=== PATIENT | male | born 1955 | race Caucasian/White ===

== ENCOUNTER → 2016-09-09 | Outpatient (REF) | payer MEDICARE | LOC: M LAB REF 13:10 | PROVIDERS: ATTEND Surgery | DX: C44.319 Basal cell carcinoma of skin of other parts of face (principal) ==

== ENCOUNTER → 2016-10-20 | Outpatient (REF) | payer MEDICARE ==
[2016-10-20 12:10] LABS: CALCIUM LEVEL 9.4 MG/DL (8.8-10.2); CREATININE FOR GFR 1.58 MG/DL (0.70-1.30); FREE T4 1.09 NG/DL (0.76-1.46); GLOMERULAR FILTRATION RATE 47.4 (>49); POTASSIUM SERUM 4.5 MEQ/L (3.5-5.1)
== END ==
LOC: M SFHCLERA 09:11
PROVIDERS: ATTEND Family Medicine
DX: E11.9 Type 2 diabetes mellitus without complications (principal); N18.3 Chronic kidney disease, stage 3 (moderate)

== ENCOUNTER → 2017-04-22 | Outpatient (REF) | payer MEDICARE ==
[2017-04-22 11:23] LABS: MEAN CORPUSCULAR HEMOGLOBIN 27.1 pg (27.0-33.0); MEAN CORPUSCULAR HGB CONC 32.1 g/dl (32.0-36.5); MEAN CORPUSCULAR VOLUME 84.5 fl (80.0-96.0); RED CELL DISTRIBUTION WIDTH 12.4 % (11.5-14.5)
[2017-04-22 12:03] LABS: ALBUMIN 4.2 GM/DL (3.2-5.2); ALBUMIN/GLOBULIN RATIO 1.27 (1.00-1.93); BILIRUBIN,TOTAL 0.4 MG/DL (0.2-1.0); CALCIUM LEVEL 9.3 MG/DL (8.8-10.2); CREATININE FOR GFR 1.61 MG/DL (0.70-1.30); FREE T4 0.99 NG/DL (0.76-1.46); GLOMERULAR FILTRATION RATE 46.4 (>49); POTASSIUM SERUM 4.5 MEQ/L (3.5-5.1); TOTAL PROTEIN 7.5 GM/DL (6.4-8.2)
[2017-04-23 14:16] LABS: PSA TOTAL 3.4 ng/mL (0.0-4.0)
== END ==
LOC: M SFHCLERA 09:44
PROVIDERS: ATTEND Family Medicine
DX: E11.9 Type 2 diabetes mellitus without complications (principal); F41.9 Anxiety disorder, unspecified
CPT/HCPCS: 80053; 82043; 83036; 84154; 84439; 84443; 85027; G0463

== ENCOUNTER → 2017-07-15 | Outpatient (REF) | payer MEDICARE ==
[2017-07-15 11:58] LABS: ALBUMIN 4.2 GM/DL (3.2-5.2); ALBUMIN/GLOBULIN RATIO 1.2 (1.00-1.93); BILIRUBIN,TOTAL 0.6 MG/DL (0.2-1.0); CALCIUM LEVEL 8.9 MG/DL (8.8-10.2); CREATININE FOR GFR 1.62 MG/DL (0.70-1.30); POTASSIUM SERUM 4.5 MEQ/L (3.5-5.1); TOTAL PROTEIN 7.7 GM/DL (6.4-8.2)
== END ==
LOC: M SFHCLERA 09:38
PROVIDERS: ATTEND Physician Assistant
DX: E11.65 Type 2 diabetes mellitus with hyperglycemia (principal); N18.3 Chronic kidney disease, stage 3 (moderate)

== ENCOUNTER → 2017-10-23 | Outpatient (CLI) | payer MEDICARE ==
[~2017-10-23] MED LIST: E-Z-GAS II EFFERVESCENT PACKET (SODIUM BICARB./CITRIC ACID/SIMETHICONE) As Ordered; E-Z-HD 98% w/w 340GM SUSP BTL As Ordered; E-Z-PAQUE 96% w/w SUSP 176GM BTL As Ordered
== END ==
LOC: M RAD 08:28
DX: R13.10 Dysphagia, unspecified (principal)
CPT/HCPCS: 74220

== ENCOUNTER 2017-12-10 10:29 | Day surgery (SDC) | payer MEDICARE ==
[2017-12-10] MEDS: NS 1,000 ML IV (10:45)
[2017-12-10] MEDS ORDERED: fentaNYL 100 MCG/2 ML INJECTION (J3010) As Ordered (12:29)
[2017-12-10] MEDS ORDERED: PROPOFOL 500 MG/50 ML VIAL As Ordered (12:31)
[2017-12-10] MEDS ORDERED: LIDOCAINE 2% INJ 100 MG/5 ML SDV (FOR ANES.) As Ordered (12:34)
[2017-12-10] MEDS ORDERED: SIMETHICONE 40MG/0.6ML DROPS 30ML As Ordered (13:34)
[2017-12-13 10:26] LABS: BEDSIDE GLUCOSE 93 MG/DL (80-115)
== END 2017-12-10 14:32 | disposition home or self-care (01) ==
LOC: M OPP 10:29
DX: Z12.11 Encounter for screening for malignant neoplasm of colon (principal); Z86.010 Personal history of colon polyps; D12.0 Benign neoplasm of cecum; D12.5 Benign neoplasm of sigmoid colon; K57.30 Diverticulosis of large intestine without perforation or abscess without bleeding; K64.8 Other hemorrhoids; R93.3 Abnormal findings on diagnostic imaging of other parts of digestive tract; I12.9 Hypertensive chronic kidney disease with stage 1 through stage 4 chronic kidney disease, or unspecified chronic kidney disease; E78.5 Hyperlipidemia, unspecified; E11.9 Type 2 diabetes mellitus without complications; E04.1 Nontoxic single thyroid nodule; Z85.828 Personal history of other malignant neoplasm of skin; R21 Rash and other nonspecific skin eruption; F41.9 Anxiety disorder, unspecified; F32.9 Major depressive disorder, single episode, unspecified; N18.9 Chronic kidney disease, unspecified; N40.1 Benign prostatic hyperplasia with lower urinary tract symptoms; Z91.018 Allergy to other foods; Z88.8 Allergy status to other drugs, medicaments and biological substances; Z88.0 Allergy status to penicillin; Z79.82 Long term (current) use of aspirin; Z79.899 Other long term (current) drug therapy; Z79.84 Long term (current) use of oral hypoglycemic drugs
CPT/HCPCS: 45385

== ENCOUNTER → 2018-01-13 | Outpatient (REF) | payer MEDICARE ==
[2018-01-13 16:47] LABS: ESTIMATED AVERAGE GLUCOSE 192 MG/DL (60-110); HEMOGLOBIN A1c 8.3 %
[2018-01-13 16:50] LABS: ALBUMIN/GLOBULIN RATIO 1.11 (1.00-1.93); ALKALINE PHOSPHATASE 69 U/L (45-117); ALT/SGPT 35 U/L (12-78); ANION GAP 4 MEQ/L (8-16); AST/SGOT 36 U/L (7-37); BILIRUBIN,TOTAL 0.4 MG/DL (0.2-1.0); BLOOD UREA NITROGEN 19 MG/DL (7-18); CALCIUM LEVEL 8.7 MG/DL (8.8-10.2); CARBON DIOXIDE LEVEL 30 MEQ/L (21-32); CHLORIDE LEVEL 107 MEQ/L (98-107); CHOLESTEROL LEVEL 109 MG/DL (<200); CHOLESTEROL RISK RATIO 3.114 (<5); GLOMERULAR FILTRATION RATE 46.6 (>49); GLUCOSE, FASTING 132 MG/DL (70-100); HDL CHOLESTEROL 35 MG/DL (>40); NON-HDL-C 74 MG/DL; POTASSIUM SERUM 4.8 MEQ/L (3.5-5.1); SODIUM LEVEL 141 MEQ/L (136-145); THYROID STIMULATING HORMONE 0.529 uIU/ML (0.358-3.740); TOTAL PROTEIN 7.6 GM/DL (6.4-8.2); TRIGLYCERIDES LEVEL 135 MG/DL (<150)
== END ==
LOC: M SFHCLERA 09:47
DX: E11.65 Type 2 diabetes mellitus with hyperglycemia (principal); E78.2 Mixed hyperlipidemia; E03.9 Hypothyroidism, unspecified
CPT/HCPCS: 84443

== ENCOUNTER 2018-03-30 12:27 | Emergency (ER) | payer MEDICARE ==
[2018-03-30 14:49] LABS: BASO % 0.3 % (0.0-1.0); EOS # 0.1 10^3/uL (0.0-0.50); EOS % 1.6 % (0.0-3.0); HEMATOCRIT 43.1 % (42.0-52.0); HEMOGLOBIN 13.5 g/dl (13.5-17.5); IMMATURE GRANULOCYTE % 0.5 % (0-3.0); LYMPH # 1.2 10^3/uL (1.5-4.5); LYMPH % 14.9 % (24.0-44.0); MEAN CORPUSCULAR HEMOGLOBIN 26.8 pg (27.0-33.0); MEAN CORPUSCULAR HGB CONC 31.3 g/dl (32.0-36.5); MEAN CORPUSCULAR VOLUME 85.5 fl (80.0-96.0); MONO % 12.8 % (0.0-5.0); NEUTROPHILS # 5.5 10^3/uL (1.8-7.7); NEUTROPHILS % 69.9 % (36.0-66.0); PLATELET COUNT, AUTOMATED 210 10^3/uL (150-450); RED BLOOD COUNT 5.04 10^6/uL (4.30-6.10); RED CELL DISTRIBUTION WIDTH 14.2 % (11.5-14.5); WHITE BLOOD COUNT 7.9 10^3/uL (4.0-10.0)
[2018-03-30 15:03] LABS: ALBUMIN/GLOBULIN RATIO 1.03 (1.00-1.93); ALKALINE PHOSPHATASE 311 U/L (45-117); ANION GAP 9 MEQ/L (8-16); AST/SGOT 179 U/L (7-37); BILIRUBIN,DIRECT 0.8 MG/DL (0.0-0.2); BILIRUBIN,TOTAL 1.1 MG/DL (0.2-1.0); BLOOD UREA NITROGEN 17 MG/DL (7-18); CALCIUM LEVEL 9.6 MG/DL (8.8-10.2); CARBON DIOXIDE LEVEL 27 MEQ/L (21-32); CHLORIDE LEVEL 104 MEQ/L (98-107); CPK CREATINE PHOSPHOKINASE 135 U/L (39-308); CREATININE FOR GFR 1.51 MG/DL (0.70-1.30); GLOMERULAR FILTRATION RATE 49.8 (>49); GLUCOSE, FASTING 84 MG/DL (70-100); LIPASE 883 U/L (73-393); POTASSIUM SERUM 4.3 MEQ/L (3.5-5.1); SODIUM LEVEL 140 MEQ/L (136-145); TOTAL PROTEIN 7.9 GM/DL (6.4-8.2); TROPONIN I < 0.02 NG/ML (< 0.10)
[2018-03-30 15:06] LABS: ALT/SGPT 264 U/L (12-78); CK-MB VALUE MASS 2.2 NG/ML (<3.6); MB/CK RELATIVE INDEX 1.62 (< OR =4)
[2018-03-30] MEDS: GASTROGRAFIN SOLUTION 30ML PO ×2 (16:16→16:43)
[2018-03-30] MEDS ORDERED: ISOVUE-370 76% 100ML VIAL (Q9967) As Ordered (17:39)
[2018-03-30] MEDS: NS 1,000 ML IV (18:14)
[2018-03-30] MEDS ORDERED: BISACODYL 5 MG TAB PO (18:15)
[2018-03-30] MEDS ORDERED: ACETAMINOPHEN TAB 650MG DOSE (2X325MG) PO (18:15)
[2018-03-30] MEDS ORDERED: MORPHINE 4 MG/ML 1ML VIAL/SYRINGE (J2270) IV (18:15)
[2018-03-30] MEDS ORDERED: ONDANSETRON 4 MG TAB (S0181) PO (18:15)
[2018-03-30] MEDS ORDERED: ALPRAZolam 0.25 MG TAB PO (18:30)
[2018-03-30] MEDS ORDERED: KETOCONAZOLE 2% CREAM TOP (18:30)
[2018-03-30] MEDS ORDERED: CETIRIZINE (ZyrTEC) 10 MG TAB PO (21:00)
[2018-03-30] MEDS ORDERED: ASPIRIN 81 MG ENTERIC TAB PO (21:00)
[2018-03-30] MEDS ORDERED: PRAVASTATIN 20 MG TAB PO (21:00)
[2018-03-30] MEDS ORDERED: TAMSULOSIN 0.4 MG CAP PO (21:00)
[2018-03-31] MEDS ORDERED: LEVOTHYROXINE 88MCG TABLET (0.088 MG) PO (06:00)
[2018-03-31] MEDS ORDERED: LISINOPRIL 5 MG TAB PO (09:00)
[2018-03-31] MEDS ORDERED: SITagliptin 50 MG TAB (JANUVIA) PO (09:00)
[2018-03-31] MEDS ORDERED: OMEPRAZOLE 20 MG CAP PO (09:00)
[2018-03-31 11:13] LABS: HEPATITIS B SURFACE ANTIGEN NEGATIVE (NEGATIVE)
[2018-03-31 11:40] LABS: HEPATITIS C VIRUS ABY INDEX 0.2 INDEX (<0.8)
[2018-03-31 11:40] LABS: HEPATITIS B CORE ANTIBODY IGM NEGATIVE (NEGATIVE)
[2018-03-31 11:43] LABS: HEPATITIS A ANTIBODY IGM NEGATIVE (NEGATIVE)
[2018-03-31] MEDS ORDERED: GLIMEPIRIDE 2 MG TAB PO (17:30)
== END 2018-03-30 20:38 | disposition short-term general hospital (02) ==
LOC: M ED 12:27 → M ED INP 16:44 → M ED 20:38
DX: K80.20 Calculus of gallbladder without cholecystitis without obstruction (principal); K85.10 Biliary acute pancreatitis without necrosis or infection; E11.9 Type 2 diabetes mellitus without complications; I12.9 Hypertensive chronic kidney disease with stage 1 through stage 4 chronic kidney disease, or unspecified chronic kidney disease; N18.9 Chronic kidney disease, unspecified; E78.5 Hyperlipidemia, unspecified; E03.9 Hypothyroidism, unspecified; F41.9 Anxiety disorder, unspecified; K21.9 Gastro-esophageal reflux disease without esophagitis; N28.1 Cyst of kidney, acquired; Z88.0 Allergy status to penicillin; Z88.8 Allergy status to other drugs, medicaments and biological substances; Z79.899 Other long term (current) drug therapy
CPT/HCPCS: Q9963

== ENCOUNTER → 2018-05-25 | Outpatient (REF) | payer MEDICARE ==
[2018-05-25 17:06] LABS: BASO % 0.5 % (0.0-1.0); EOS # 0.2 10^3/uL (0.0-0.50); EOS % 2.4 % (0.0-3.0); HEMATOCRIT 41.6 % (42.0-52.0); HEMOGLOBIN 13.2 g/dl (13.5-17.5); IMMATURE GRANULOCYTE % 0.2 % (0-3.0); LYMPH # 1.5 10^3/uL (1.5-4.5); LYMPH % 17.3 % (24.0-44.0); MEAN CORPUSCULAR HEMOGLOBIN 26.6 pg (27.0-33.0); MEAN CORPUSCULAR HGB CONC 31.7 g/dl (32.0-36.5); MEAN CORPUSCULAR VOLUME 83.9 fl (80.0-96.0); MONO % 12.4 % (0.0-5.0); NEUTROPHILS # 5.6 10^3/uL (1.8-7.7); NEUTROPHILS % 67.2 % (36.0-66.0); PLATELET COUNT, AUTOMATED 203 10^3/uL (150-450); RED BLOOD COUNT 4.96 10^6/uL (4.30-6.10); RED CELL DISTRIBUTION WIDTH 12.9 % (11.5-14.5); WHITE BLOOD COUNT 8.4 10^3/uL (4.0-10.0)
[2018-05-25 17:16] LABS: ESTIMATED AVERAGE GLUCOSE 151 MG/DL (60-110); HEMOGLOBIN A1c 6.9 %
[2018-05-25 17:20] LABS: CREATININE, URINE 97.3 MG/DL; MALB URINE SIEMENS 7.6 MG/L
[2018-05-25 17:21] LABS: MAU/CREAT RATIO 7.8 MCG/MG (0.0-30.0)
[2018-05-25 17:25] LABS: ALBUMIN/GLOBULIN RATIO 1.08 (1.00-1.93); ALKALINE PHOSPHATASE 77 U/L (45-117); ALT/SGPT 31 U/L (12-78); ANION GAP 9 MEQ/L (8-16); AST/SGOT 30 U/L (7-37); BILIRUBIN,TOTAL 0.7 MG/DL (0.2-1.0); BLOOD UREA NITROGEN 18 MG/DL (7-18); CALCIUM LEVEL 9.6 MG/DL (8.8-10.2); CARBON DIOXIDE LEVEL 29 MEQ/L (21-32); CHLORIDE LEVEL 101 MEQ/L (98-107); CHOLESTEROL LEVEL 119 MG/DL (<200); CHOLESTEROL RISK RATIO 2.833 (<5); CREATININE FOR GFR 1.59 MG/DL (0.70-1.30); GLOMERULAR FILTRATION RATE 46.9 (>49); GLUCOSE, FASTING 109 MG/DL (70-100); HDL CHOLESTEROL 42 MG/DL (>40); LDL CHOLESTEROL 50 MG/DL (<100); NON-HDL-C 77 MG/DL; POTASSIUM SERUM 4.8 MEQ/L (3.5-5.1); SODIUM LEVEL 139 MEQ/L (136-145); TOTAL PROTEIN 7.7 GM/DL (6.4-8.2); TRIGLYCERIDES LEVEL 136 MG/DL (<150)
[2018-05-28 00:09] LABS: PSA % FREE 48.5 % (.); PSA FREE 4.85 ng/mL
== END ==
LOC: M SFHCLERA 10:49
DX: E11.9 Type 2 diabetes mellitus without complications (principal); R97.20 Elevated prostate specific antigen [PSA]
CPT/HCPCS: 84443

== ENCOUNTER → 2018-06-03 | Outpatient (REF) | payer MEDICARE | LOC: M SMT 13:12 | DX: R97.20 Elevated prostate specific antigen [PSA] (principal); Z79.899 Other long term (current) drug therapy | CPT/HCPCS: 87086 ==

== ENCOUNTER → 2018-06-29 | Outpatient (CLI) | payer MEDICARE ==
[~2018-06-29] MED LIST changes: +ALPR0.25 PO; +ASPI1TAB PO; +CETI10TA PO; -E-Z-GAS II EFFERVESCENT PACKET (SODIUM BICARB./CITRIC ACID/SIMETHICONE) As Ordered; -E-Z-HD 98% w/w 340GM SUSP BTL As Ordered; -E-Z-PAQUE 96% w/w SUSP 176GM BTL As Ordered; +FLOM0.4C39 PO; +FLON1SPR; +GLIM2TA PO; +GLIM4TAB; +KETO2CR TOP; +LEVO88TA3 PO; +LISI-542 PO; +METF500T13 PO; +OMEP40CA2 PO; +PRAV40TA2 PO; +SITA50TAB PO
--- NOTE | 2018-06-29 14:27 | REP ---
Prostate sonography: History: Elevated PSA Sonographic findings: Trans rectal prostate sonography demonstrates unremarkable seminal vesicles. Prostate gland is heterogeneously enlarged with calcifications and cystic changes noted. Glandular dimensions are measured at 5.6 x 4.3 x 5.6 cm with a calculated glandular volume of 68.5 ml. There are multiple right and left nodules. The largest on the right is 1.0 and that on the left 1.6 cm. Transrectal sonographic guidance provided to Dr. Hagen who performed trans rectal ultrasound guided needle biopsy procedure . Electronically Signed by Ten Jimenez MD 06/29/2018 02:18 P
== END ==
LOC: M SMT PRO 09:07
PROVIDERS: ATTEND Nurse Practitioner Family
DX: R97.20 Elevated prostate specific antigen [PSA] (principal)
CPT/HCPCS: 55700; 76872; 76942; G0416

== ENCOUNTER → 2018-07-29 | Outpatient (REF) | payer MEDICARE | LOC: M SFHCLERA 10:45 | PROVIDERS: ATTEND Family Medicine | DX: E03.9 Hypothyroidism, unspecified (principal) ==

== ENCOUNTER → 2018-09-09 | Outpatient (CLI) | payer MEDICARE ==
--- NOTE | 2018-09-09 18:09 | REP ---
Right ribs four views: There is no rib fracture or other rib abnormality. PA chest: Comparison is 05/22/2012. There is no pneumothorax, hemothorax or pulmonary contusion. The lung stoner are clear. Cardiac size is normal. The [place], mediastinum, skeletal structures are unremarkable. There is no interval change. Impression: Negative PA chest. Electronically Signed by Myles Alexander MD 09/09/2018 06:01 P
== END ==
LOC: M LRY 17:37
PROVIDERS: ATTEND Physician Assistant
DX: R07.81 Pleurodynia (principal)
CPT/HCPCS: 71101; G0463

== ENCOUNTER → 2018-10-25 | Outpatient (REF) | payer MEDICARE ==
[2018-10-25 17:19] LABS: CALCIUM LEVEL 8.8 MG/DL (8.8-10.2); CREATININE FOR GFR 1.54 MG/DL (0.70-1.30); GLOMERULAR FILTRATION RATE 48.5 (>49); POTASSIUM SERUM 4.8 MEQ/L (3.5-5.1); THYROID STIMULATING HORMONE 4.41 uIU/ML (0.358-3.740)
[2018-10-25 17:45] LABS: HEMOGLOBIN A1c 7.9 %
== END ==
LOC: M SFHCLERA 11:22
PROVIDERS: ATTEND Family Medicine
DX: E11.9 Type 2 diabetes mellitus without complications (principal); N18.9 Chronic kidney disease, unspecified; E03.9 Hypothyroidism, unspecified

== ENCOUNTER → 2018-12-13 | Outpatient (REF) | payer MEDICARE ==
[~2018-12-13] MED LIST changes: -ASPI1TAB PO; +ASPI81TA26 PO; -GLIM2TA PO; +GLIM2TAB29 PO
== END ==
LOC: M SFHCLERA 10:37
PROVIDERS: ATTEND Family Medicine
DX: E03.9 Hypothyroidism, unspecified (principal)

== ENCOUNTER → 2019-01-04 | Outpatient (REF) | payer MEDICARE | LOC: M SFHCLERA 10:16 | PROVIDERS: ATTEND Urology | DX: R97.20 Elevated prostate specific antigen [PSA] (principal) ==

== ENCOUNTER → 2019-01-07 | Outpatient (REF) | payer MEDICARE ==
[2019-01-07 11:40] LABS: BASO # 0.1 10^3/uL (0.0-0.2); BASO % 0.8 % (0.0-1.0); EOS # 0.2 10^3/uL (0.0-0.50); EOS % 2.9 % (0.0-3.0); HEMATOCRIT 45.8 % (42.0-52.0); HEMOGLOBIN 14.5 g/dl (13.5-17.5); LYMPH # 1.1 10^3/uL (1.5-4.5); MEAN CORPUSCULAR HEMOGLOBIN 27.7 pg (27.0-33.0); MEAN CORPUSCULAR HGB CONC 31.7 g/dl (32.0-36.5); MEAN CORPUSCULAR VOLUME 87.4 fl (80.0-96.0); MONO % 12.9 % (0.0-5.0); NEUTROPHILS # 5.5 10^3/uL (1.8-7.7); PLATELET COUNT, AUTOMATED 199 10^3/uL (150-450); RED BLOOD COUNT 5.24 10^6/uL (4.30-6.10); WHITE BLOOD COUNT 7.9 10^3/uL (4.0-10.0)
[2019-01-09 00:08] LABS: Lyme Disease IgG/IgM Antibodie <0.91 ISR (0.00-0.90); Lyme Disease IgM Ab Quantitati <0.80 index (0.00-0.79)
== END ==
LOC: M SFHCLERA 09:56
PROVIDERS: ATTEND Physician Assistant
DX: L03.312 Cellulitis of back [any part except buttock and flank] (principal)
CPT/HCPCS: 85025; 86617; G0463

== ENCOUNTER → 2019-01-25 | Outpatient (REF) | payer MEDICARE ==
[~2019-01-25] MED LIST changes: -GLIM4TAB; +GLIM4TAB5; -OMEP40CA2 PO; +OMEP40CA97 PO
[2019-01-25 13:21] LABS: HEMOGLOBIN A1c 7.8 %
== END ==
LOC: M SFHCLERA 09:59
PROVIDERS: ATTEND Family Medicine
DX: E11.9 Type 2 diabetes mellitus without complications (principal); E03.9 Hypothyroidism, unspecified

== ENCOUNTER → 2019-01-31 | Outpatient (REF) | payer MEDICARE ==
[~2019-01-31] MED LIST changes: +GLIM4TAB; -GLIM4TAB5; +OMEP40CA2 PO; -OMEP40CA97 PO
[2019-02-03 00:06] LABS: Lyme Disease IgG/IgM Antibodie <0.91 ISR (0.00-0.90); Lyme Disease IgM Ab Quantitati <0.80 index (0.00-0.79)
== END ==
LOC: M SFHCLERA 12:21
PROVIDERS: ATTEND Family Medicine
DX: R21 Rash and other nonspecific skin eruption (principal); Z23 Encounter for immunization
CPT/HCPCS: 86617; 90670; G0009; G0463

== ENCOUNTER → 2019-04-29 | Outpatient (REF) | payer MEDICARE ==
[2019-04-29 13:01] LABS: CALCIUM LEVEL 9.4 MG/DL (8.8-10.2); CREATININE FOR GFR 1.49 MG/DL (0.70-1.30); GLOMERULAR FILTRATION RATE 50.4 (>49); POTASSIUM SERUM 4.5 MEQ/L (3.5-5.1); THYROID STIMULATING HORMONE 11.4 uIU/ML (0.358-3.740)
[2019-04-29 13:47] LABS: HEMOGLOBIN A1c 6.9 %
== END ==
LOC: M SFHCLERA 08:55
PROVIDERS: ATTEND Family Medicine
DX: E11.9 Type 2 diabetes mellitus without complications (principal); N18.9 Chronic kidney disease, unspecified; E03.9 Hypothyroidism, unspecified

== ENCOUNTER → 2019-06-28 | Outpatient (REF) | payer MEDICARE ==
[~2019-06-28] MED LIST changes: -GLIM4TAB; +GLIM4TAB3; -OMEP40CA2 PO; +OMEP40CA97 PO
[2019-06-28 17:28] LABS: PROSTATIC SPECIFIC AG MONITOR 1.82 NG/ML (< 4.00); THYROID STIMULATING HORMONE 2.02 uIU/ML (0.358-3.740)
[2019-06-28 17:49] LABS: MALB URINE SIEMENS 5.1 MG/L; MAU/CREAT RATIO 4.4 MCG/MG (0.0-30.0)
== END ==
LOC: M SFHCSACK 10:55
PROVIDERS: ATTEND Family Medicine
DX: E03.9 Hypothyroidism, unspecified (principal); E11.9 Type 2 diabetes mellitus without complications; R97.20 Elevated prostate specific antigen [PSA]

== ENCOUNTER → 2020-01-06 | Outpatient (REF) | payer MEDICARE ==
[~2020-01-06] MED LIST changes: -GLIM4TAB3; +GLIM4TAB5
[2020-01-06 12:06] LABS: CALCIUM LEVEL 9.2 MG/DL (8.8-10.2); CREATININE FOR GFR 1.47 MG/DL (0.70-1.30); POTASSIUM SERUM 4.6 MEQ/L (3.5-5.1); THYROID STIMULATING HORMONE 0.728 uIU/ML (0.358-3.740)
[2020-01-06 12:14] LABS: MALB URINE SIEMENS 9.2 MG/L; MAU/CREAT RATIO 4.2 MCG/MG (0.0-30.0)
[2020-01-06 13:02] LABS: HEMOGLOBIN A1c 7.6 %
== END ==
LOC: M PLALAB 10:00
PROVIDERS: ATTEND Family Medicine
DX: E11.9 Type 2 diabetes mellitus without complications (principal); R97.20 Elevated prostate specific antigen [PSA]; E03.9 Hypothyroidism, unspecified; Z12.5 Encounter for screening for malignant neoplasm of prostate
CPT/HCPCS: 36415; 80048; 82043; 83036; 84443; G0103

== ENCOUNTER → 2020-02-09 | Outpatient (REF) | payer MEDICARE ==
[2020-02-09 13:03] LABS: BASO % 0.2 % (0.0-1.0); EOS % 0.3 % (0.0-3.0); HEMATOCRIT 41.8 % (42.0-52.0); HEMOGLOBIN 13.3 g/dl (13.5-17.5); LYMPH # 0.8 10^3/uL (1.5-5.0); MEAN CORPUSCULAR HEMOGLOBIN 28.7 pg (27.0-33.0); MEAN CORPUSCULAR HGB CONC 31.8 g/dl (32.0-36.5); MEAN CORPUSCULAR VOLUME 90.3 fl (80.0-96.0); MONO # 1.1 10^3/uL (0.0-0.8); MONO % 18.1 % (0.0-5.0); NEUTROPHILS # 3.9 10^3/uL (1.5-8.5); NEUTROPHILS % 67.1 % (36.0-66.0); PLATELET COUNT, AUTOMATED 157 10^3/uL (150-450); RED BLOOD COUNT 4.63 10^6/uL (4.30-6.10); WHITE BLOOD COUNT 5.9 10^3/uL (4.0-10.0)
[2020-02-09 13:15] LABS: INR 1.21
[2020-02-09 13:16] LABS: PARTIAL THROMBOPLASTIN TIME 29.1 SECONDS (25.0-38.4)
[2020-02-11 19:08] LABS: Lyme Disease IgG/IgM Antibodie <0.91 ISR (0.00-0.90); Lyme Disease IgM Ab Quantitati <0.80 index (0.00-0.79)
== END ==
LOC: M SFHCLERA 11:24
PROVIDERS: ATTEND Physician Assistant
DX: L98.9 Disorder of the skin and subcutaneous tissue, unspecified (principal)
CPT/HCPCS: 85025; 85610; 85730; 86617; G0463

== ENCOUNTER → 2020-04-06 | Outpatient (CLI) | payer MEDICARE ==
[2020-04-06 14:36] LABS: CALCIUM LEVEL 9.8 MG/DL (8.8-10.2); CREATININE FOR GFR 1.58 MG/DL (0.70-1.30); GLOMERULAR FILTRATION RATE 46.9 (>49); POTASSIUM SERUM 4.9 MEQ/L (3.5-5.1)
== END ==
LOC: M PLALAB 10:50
PROVIDERS: ATTEND Family Medicine
DX: E11.9 Type 2 diabetes mellitus without complications (principal)

== ENCOUNTER → 2020-07-03 | Outpatient (CLI) | payer MEDICARE | LOC: M PLALAB 10:21 | PROVIDERS: ATTEND Nurse Practitioner Family | DX: R97.20 Elevated prostate specific antigen [PSA] (principal) ==

== ENCOUNTER → 2020-08-22 | Outpatient (REF) | payer MEDICARE ==
[~2020-08-22] MED LIST changes: -LISI-542 PO; +LISI-898 PO
[2020-08-22 15:03] LABS: CALCIUM LEVEL 9.8 MG/DL (8.8-10.2); CHOLESTEROL RISK RATIO 2.875 (<5); CREATININE FOR GFR 1.6 MG/DL (0.70-1.30); GLOMERULAR FILTRATION RATE 46.3 (>49); POTASSIUM SERUM 4.7 MEQ/L (3.5-5.1); THYROID STIMULATING HORMONE 3.72 uIU/ML (0.358-3.740)
[2020-08-22 15:37] LABS: HEMOGLOBIN A1c 7.6 %
== END ==
LOC: M PLALAB 11:44
PROVIDERS: ATTEND Family Medicine
DX: E11.9 Type 2 diabetes mellitus without complications (principal); E78.2 Mixed hyperlipidemia; E03.9 Hypothyroidism, unspecified

== ENCOUNTER → 2020-12-25 | Outpatient (REF) | payer MEDICARE ==
[2020-12-25 14:39] LABS: CALCIUM LEVEL 9.5 MG/DL (8.8-10.2); CREATININE FOR GFR 1.32 MG/DL (0.70-1.30); GLOMERULAR FILTRATION RATE 57.6 (>49); POTASSIUM SERUM 4.5 MEQ/L (3.5-5.1); THYROID STIMULATING HORMONE 0.378 uIU/ML (0.358-3.740)
[2020-12-25 14:40] LABS: MAU/CREAT RATIO 4.4 MCG/MG (0.0-30.0)
[2020-12-25 15:05] LABS: HEMOGLOBIN A1c 7.1 %
== END ==
LOC: M PLALAB 11:29
PROVIDERS: ATTEND Family Medicine
DX: E11.9 Type 2 diabetes mellitus without complications (principal); I10 Essential (primary) hypertension; E03.9 Hypothyroidism, unspecified

== ENCOUNTER → 2021-03-27 | Outpatient (CLI) | payer MEDICARE ==
[~2021-03-27] MED LIST changes: +OMEP40CA4 PO; -OMEP40CA97 PO
[2021-03-27 12:44] LABS: CALCIUM LEVEL 9.8 MG/DL (8.8-10.2); CREATININE FOR GFR 1.55 MG/DL (0.70-1.30); GLOMERULAR FILTRATION RATE 47.8 (>49); POTASSIUM SERUM 4.9 MEQ/L (3.5-5.1); THYROID STIMULATING HORMONE 1.85 uIU/ML (0.358-3.740)
[2021-03-27 15:03] LABS: HEMOGLOBIN A1c 7.1 %
== END ==
LOC: M PLALAB 09:46
PROVIDERS: ATTEND Family Medicine
DX: E03.9 Hypothyroidism, unspecified (principal); E11.319 Type 2 diabetes mellitus with unspecified diabetic retinopathy without macular edema

== ENCOUNTER → 2021-07-09 | Outpatient (CLI) | payer MEDICARE | LOC: M PLALAB 10:41 | PROVIDERS: ATTEND Nurse Practitioner Women's Health | DX: Z12.5 Encounter for screening for malignant neoplasm of prostate (principal) | CPT/HCPCS: 36415; G0103 ==

== ENCOUNTER → 2021-10-22 | Outpatient (CLI) | payer MEDICARE ==
[~2021-10-22] MED LIST changes: -LISI-898 PO; +LISI5TAB11 PO
[2021-10-22 12:45] LABS: CALCIUM LEVEL 9.6 MG/DL (8.8-10.2); CREATININE FOR GFR 1.44 MG/DL (0.70-1.30); GLOMERULAR FILTRATION RATE 51.9 (>49); POTASSIUM SERUM 4.5 MEQ/L (3.5-5.1)
[2021-10-22 13:51] LABS: HEMOGLOBIN A1c 8.8 %
== END ==
LOC: M LAB 11:31
PROVIDERS: ATTEND Family Medicine
DX: E11.9 Type 2 diabetes mellitus without complications (principal)

== ENCOUNTER → 2022-01-15 | Outpatient (CLI) | payer MEDICARE | LOC: M PLALAB 10:13 | PROVIDERS: ATTEND Nurse Practitioner Women's Health | DX: Z87.898 Personal history of other specified conditions (principal); Z85.46 Personal history of malignant neoplasm of prostate ==

== ENCOUNTER → 2022-01-30 | Outpatient (CLI) | payer MEDICARE ==
[2022-01-30 13:58] LABS: CALCIUM LEVEL 9.6 MG/DL (8.8-10.2); CREATININE FOR GFR 1.64 MG/DL (0.70-1.30); GLOMERULAR FILTRATION RATE 44.7 (>49); POTASSIUM SERUM 4.8 MEQ/L (3.5-5.1); THYROID STIMULATING HORMONE 3.41 uIU/ML (0.358-3.740)
[2022-01-30 14:34] LABS: HEMOGLOBIN A1c 7.2 %
== END ==
LOC: M PLALAB 09:17
PROVIDERS: ATTEND Family Medicine
DX: E03.9 Hypothyroidism, unspecified (principal); E11.9 Type 2 diabetes mellitus without complications

== ENCOUNTER → 2022-06-03 | Outpatient (CLI) | payer MEDICARE ==
[2022-06-03 13:21] LABS: CALCIUM LEVEL 9.4 MG/DL (8.8-10.2); CREATININE FOR GFR 1.43 MG/DL (0.70-1.30); GLOMERULAR FILTRATION RATE 52.4 (>49); POTASSIUM SERUM 4.6 MEQ/L (3.5-5.1)
== END ==
LOC: M WUC 08:59
PROVIDERS: ATTEND Family Medicine
DX: E11.9 Type 2 diabetes mellitus without complications (principal)

== ENCOUNTER → 2022-07-22 | Outpatient (CLI) | payer MEDICARE | LOC: M WUC 10:17 | PROVIDERS: ATTEND Nurse Practitioner Women's Health | DX: Z87.898 Personal history of other specified conditions (principal); R97.20 Elevated prostate specific antigen [PSA] ==

== ENCOUNTER → 2022-08-28 | Outpatient (CLI) | payer MEDICARE | LOC: M WUC 08:38 | PROVIDERS: ATTEND Family Medicine | DX: E03.9 Hypothyroidism, unspecified (principal) ==

== ENCOUNTER → 2022-09-18 | Outpatient (CLI) | payer MEDICARE | LOC: M RAD 15:55 | PROVIDERS: ATTEND Family Medicine | DX: E03.9 Hypothyroidism, unspecified (principal) ==

== ENCOUNTER → 2022-09-25 | Outpatient (CLI) | payer MEDICARE ==
[2022-09-25 10:48] LABS: BLOOD UREA NITROGEN 15 MG/DL (9-23); CREATININE FOR GFR 1.24 MG/DL (0.70-1.30); GLOMERULAR FILTRATION RATE > 60.0 (>49)
== END ==
LOC: M WUC 08:09
PROVIDERS: ATTEND Physician Assistant Medical
DX: R10.84 Generalized abdominal pain (principal); R19.4 Change in bowel habit

== ENCOUNTER → 2022-09-25 | Outpatient (CLI) | payer MEDICARE ==
[~2022-09-25] MED LIST changes: +E-Z-GAS II EFFERVESCENT PACKET (SODIUM BICARB./CITRIC ACID/SIMETHICONE) As Ordered ONE; +E-Z-HD 98% w/w 340GM SUSP BTL As Ordered ONE; +E-Z-PAQUE 96% w/w SUSP 176GM BTL As Ordered ONE
== END ==
LOC: M RAD 08:35
PROVIDERS: ATTEND Physician Assistant Medical
DX: R13.10 Dysphagia, unspecified (principal); K21.9 Gastro-esophageal reflux disease without esophagitis; R10.84 Generalized abdominal pain; R19.4 Change in bowel habit

== ENCOUNTER → 2022-09-30 | Outpatient (CLI) | payer MEDICARE ==
[~2022-09-30] MED LIST changes: -E-Z-GAS II EFFERVESCENT PACKET (SODIUM BICARB./CITRIC ACID/SIMETHICONE) As Ordered ONE; -E-Z-HD 98% w/w 340GM SUSP BTL As Ordered ONE; -E-Z-PAQUE 96% w/w SUSP 176GM BTL As Ordered ONE; +GASTROGRAFIN SOLUTION 30ML As Ordered ONE; +ISOVUE-370 76% 100ML VIAL As Ordered ONE
== END ==
LOC: M RAD 08:59
PROVIDERS: ATTEND Physician Assistant Medical
DX: R10.84 Generalized abdominal pain (principal); R19.4 Change in bowel habit; R68.81 Early satiety
CPT/HCPCS: 74178; Q9963; Q9967

== ENCOUNTER → 2022-10-20 | Outpatient (CLI) | payer MEDICARE ==
[~2022-10-20] MED LIST changes: +FINA5TAB2 PO; -GASTROGRAFIN SOLUTION 30ML As Ordered ONE; -ISOVUE-370 76% 100ML VIAL As Ordered ONE; +LEVO112T2 PO; +LISI2.5T9 PO; +OMEG10002 PO
== END ==
LOC: M LABSMTC 10:50
PROVIDERS: ATTEND Anesthesiology
DX: Z20.828 Contact with and (suspected) exposure to other viral communicable diseases (principal)

== ENCOUNTER 2022-10-23 06:46 | Day surgery (SDC) | payer MEDICARE ==
[~2022-10-23] VITALS: Ht 185.4 cm; Wt 85.6 kg
[~2022-10-23 06:46] MED LIST changes: +NS 1,000 ML IV ONE
[2022-10-23] MEDS ORDERED: propofoL 200 MG/20 ML VIAL As Ordered ONE (08:56)
[2022-10-23] MEDS ORDERED: GLYCOPYRROLATE INJ 0.2 MG/ML 2 ML VIAL As Ordered ONE (08:56)
[2022-10-23] MEDS ORDERED: LIDOCAINE 2% MDV 20ML VIAL As Ordered ONE (08:56)
[2022-10-23] MEDS ORDERED: fentaNYL 100 MCG/2 ML INJECTION As Ordered ONE (08:56)
[2022-10-23 09:10] VITALS: BP 120/73
== END 2022-10-23 09:16 | disposition home or self-care (01) ==
LOC: M OPP 06:46
PROVIDERS: ATTEND Internal Medicine Gastroenterology
DX: K64.8 Other hemorrhoids (principal); K57.30 Diverticulosis of large intestine without perforation or abscess without bleeding; K31.7 Polyp of stomach and duodenum; I10 Essential (primary) hypertension; E78.5 Hyperlipidemia, unspecified; E11.9 Type 2 diabetes mellitus without complications; N40.0 Benign prostatic hyperplasia without lower urinary tract symptoms; Z79.02 Long term (current) use of antithrombotics/antiplatelets; Z79.82 Long term (current) use of aspirin; Z79.84 Long term (current) use of oral hypoglycemic drugs; Z79.890 Hormone replacement therapy; Z79.899 Other long term (current) drug therapy; Z88.0 Allergy status to penicillin; Z88.6 Allergy status to analgesic agent; Z91.018 Allergy to other foods
CPT/HCPCS: 43250; 43251; 45378; 88305; J3010

== ENCOUNTER → 2022-11-28 | Outpatient (CLI) | payer MEDICARE ==
[~2022-11-28] MED LIST changes: -NS 1,000 ML IV ONE
[2022-11-28 17:43] LABS: HEMOGLOBIN A1c 7.5 % (4.0-6.0)
[2022-11-28 17:56] LABS: CALCIUM LEVEL 9.1 MG/DL (8.3-10.6); CREATININE FOR GFR 1.34 MG/DL (0.70-1.30); GLOMERULAR FILTRATION RATE 56.3 (>49); POTASSIUM SERUM 5.1 MMOL/L (3.5-5.1)
[2022-11-28 18:00] LABS: THYROID STIMULATING HORMONE 0.749 uIU/ML (0.55-4.78)
[2022-11-28 18:09] LABS: CREATININE, URINE 235.2 MG/DL; MAU/CREAT RATIO 12.7 MCG/MG (0.0-30.0)
== END ==
LOC: M WUC 11:18
PROVIDERS: ATTEND Family Medicine
DX: E03.9 Hypothyroidism, unspecified (principal); E11.9 Type 2 diabetes mellitus without complications

== ENCOUNTER → 2023-01-28 | Outpatient (REF) | payer MEDICARE | LOC: M LAB REF 22:13 | PROVIDERS: ATTEND Nurse Practitioner Women's Health | DX: Z87.898 Personal history of other specified conditions (principal) ==

== ENCOUNTER → 2023-03-06 | Outpatient (CLI) | payer MEDICARE ==
[2023-03-06 12:55] LABS: CALCIUM LEVEL 9.7 MG/DL (8.3-10.6); CREATININE FOR GFR 1.43 MG/DL (0.70-1.30); GLOMERULAR FILTRATION RATE 52.2 (>49); POTASSIUM SERUM 4.6 MMOL/L (3.5-5.1)
[2023-03-06 12:57] LABS: THYROID STIMULATING HORMONE 0.036 uIU/ML (0.55-4.78)
== END ==
LOC: M WUC 09:42
PROVIDERS: ATTEND Family Medicine
DX: E03.9 Hypothyroidism, unspecified (principal); E11.9 Type 2 diabetes mellitus without complications

== ENCOUNTER → 2023-05-06 | Outpatient (REF) | payer MEDICARE | LOC: M LABWUC 16:43 | PROVIDERS: ATTEND Family Medicine | DX: E03.9 Hypothyroidism, unspecified (principal) ==

== ENCOUNTER → 2023-06-04 | Outpatient (REF) | payer MEDICARE ==
[2023-06-04 12:51] LABS: HEMOGLOBIN A1c 7.5 % (4.0-6.0)
[2023-06-04 12:54] LABS: ALBUMIN 3.9 G/DL (3.2-5.2); BILIRUBIN,TOTAL 0.5 MG/DL (0.3-1.2); CALCIUM LEVEL 9.7 MG/DL (8.3-10.6); CREATININE FOR GFR 1.41 MG/DL (0.70-1.30); GLOMERULAR FILTRATION RATE 53.1 (>49); POTASSIUM SERUM 5.1 MMOL/L (3.5-5.1); TOTAL PROTEIN 7.6 G/DL (5.7-8.2)
[2023-06-04 12:55] LABS: THYROID STIMULATING HORMONE 2.696 uIU/ML (0.55-4.78)
== END ==
LOC: M LABWUC 11:44
PROVIDERS: ATTEND Family Medicine
DX: E03.9 Hypothyroidism, unspecified (principal); E11.9 Type 2 diabetes mellitus without complications

== ENCOUNTER → 2023-08-03 | Outpatient (REF) | payer MEDICARE ==
[2023-08-03 16:51] LABS: ALBUMIN 4.2 G/DL (3.2-5.2); BILIRUBIN,TOTAL 0.4 MG/DL (0.3-1.2); CALCIUM LEVEL 9.5 MG/DL (8.3-10.6); CREATININE FOR GFR 1.38 MG/DL (0.70-1.30); GLOMERULAR FILTRATION RATE 54.4 (>49); MAGNESIUM LEVEL 1.4 MG/DL (1.8-2.4); POTASSIUM SERUM 4.9 MMOL/L (3.5-5.1); TOTAL PROTEIN 7.6 G/DL (5.7-8.2)
== END ==
LOC: M LABWUC 16:12
PROVIDERS: ATTEND Family Medicine
DX: M62.838 Other muscle spasm (principal)

== ENCOUNTER → 2023-08-28 | Outpatient (CLI) | payer MEDICARE ==
[2023-08-28 12:49] LABS: BILIRUBIN,TOTAL 0.4 MG/DL (0.3-1.2); CALCIUM LEVEL 9.9 MG/DL (8.3-10.6); CREATININE FOR GFR 1.27 MG/DL (0.70-1.30); GLOMERULAR FILTRATION RATE 59.9 (>49); MAGNESIUM LEVEL 1.4 MG/DL (1.8-2.4); POTASSIUM SERUM 4.8 MMOL/L (3.5-5.1); TOTAL PROTEIN 7.9 G/DL (5.7-8.2)
[2023-08-28 12:51] LABS: TOTAL 25(OH) VITAMIN D 21.8 NG/ML (20.0-100.0)
== END ==
LOC: M RAD 10:55
PROVIDERS: ATTEND Family Medicine
DX: M47.816 Spondylosis without myelopathy or radiculopathy, lumbar region (principal); M79.604 Pain in right leg; Z79.899 Other long term (current) drug therapy

== ENCOUNTER → 2023-09-25 | Outpatient (CLI) | payer MEDICARE | LOC: M RAD 14:43 | PROVIDERS: ATTEND Family Medicine | DX: M79.604 Pain in right leg (principal); M47.816 Spondylosis without myelopathy or radiculopathy, lumbar region ==

== ENCOUNTER → 2023-10-06 | Outpatient (CLI) | payer MEDICARE ==
[2023-10-06 16:35] LABS: ALBUMIN 4.1 G/DL (3.2-5.2); BILIRUBIN,TOTAL 0.5 MG/DL (0.3-1.2); CALCIUM LEVEL 9.3 MG/DL (8.3-10.6); CREATININE FOR GFR 1.33 MG/DL (0.70-1.30); GLOMERULAR FILTRATION RATE 56.6 (>42); MAGNESIUM LEVEL 1.3 MG/DL (1.8-2.4); POTASSIUM SERUM 4.5 MMOL/L (3.5-5.1); TOTAL PROTEIN 7.7 G/DL (5.7-8.2)
[2023-10-06 16:37] LABS: THYROID STIMULATING HORMONE 2.823 uIU/ML (0.55-4.78)
[2023-10-06 17:06] LABS: CREATININE, URINE 263.9 MG/DL; MAU/CREAT RATIO 6.8 MCG/MG (0.0-30.0)
[2023-10-06 17:24] LABS: HEMOGLOBIN A1c 8.9 % (4.0-6.0)
== END ==
LOC: M WUC 11:07
PROVIDERS: ATTEND Family Medicine
DX: E11.9 Type 2 diabetes mellitus without complications (principal); E03.9 Hypothyroidism, unspecified; E83.42 Hypomagnesemia; R25.2 Cramp and spasm

== ENCOUNTER → 2023-11-20 | Outpatient (CLI) | payer MEDICARE ==
[2023-11-20 17:17] LABS: IRON (FE) 32 UG/DL (65-175); PERCENT SATURATION 7.3 % (19.7-50.0); TOTAL IRON BINDING CAPACITY 439 UG/DL (250-425)
[2023-11-20 17:18] LABS: ALBUMIN 4.1 G/DL (3.2-5.2); ALKALINE PHOSPHATASE 81 U/L (46-116); ALT/SGPT 51 U/L (7.0-40); AST/SGOT 47 U/L (<34); BILIRUBIN,DIRECT 0.2 MG/DL (<0.4); BILIRUBIN,TOTAL 0.4 MG/DL (0.3-1.2); TOTAL PROTEIN 7.4 G/DL (5.7-8.2)
[2023-11-20 17:20] LABS: FERRITIN 11.2 NG/ML (10.5-307.3)
[2023-11-20 19:22] LABS: HEPATITIS C VIRUS ABY INDEX < 0.02 INDEX (<0.8)
[2023-11-20 19:23] LABS: HEPATITIS B CORE ANTIBODY IGM NEGATIVE (NEGATIVE)
== END ==
LOC: M WUC 13:02
PROVIDERS: ATTEND Physician Assistant Medical
DX: R74.01 Elevation of levels of liver transaminase levels (principal)

== ENCOUNTER → 2023-12-04 | Outpatient (CLI) | payer MEDICARE | LOC: M RAD 08:58 | PROVIDERS: ATTEND Physician Assistant Medical | DX: D18.03 Hemangioma of intra-abdominal structures (principal); K76.0 Fatty (change of) liver, not elsewhere classified; R74.01 Elevation of levels of liver transaminase levels; Z90.49 Acquired absence of other specified parts of digestive tract ==

== ENCOUNTER → 2023-12-18 | Outpatient (REF) | payer MEDICARE ==
[2023-12-18 14:33] LABS: HEMATOCRIT 40.2 % (42.0-52.0); MEAN CORPUSCULAR HEMOGLOBIN 25.2 pg (27.0-33.0); MEAN CORPUSCULAR HGB CONC 29.9 g/dl (32.0-36.5); MEAN CORPUSCULAR VOLUME 84.5 fl (80.0-96.0); PLATELET COUNT, AUTOMATED 206 10^3/uL (150-450); RED BLOOD COUNT 4.76 10^6/uL (4.30-6.10); WHITE BLOOD COUNT 8.1 10^3/uL (4.0-10.0)
== END ==
LOC: M LABWUC 12:55
PROVIDERS: ATTEND Physician Assistant Medical
DX: E61.1 Iron deficiency (principal)

== ENCOUNTER → 2024-01-07 | Outpatient (CLI) | payer MEDICARE ==
[2024-01-07 16:47] LABS: ALBUMIN 3.9 G/DL (3.2-5.2); ALKALINE PHOSPHATASE 69 U/L (46-116); ALT/SGPT 59 U/L (7.0-40); AST/SGOT 46 U/L (<34); BILIRUBIN,TOTAL 0.5 MG/DL (0.3-1.2); BLOOD UREA NITROGEN 20 MG/DL (9-23); CALCIUM LEVEL 9.6 MG/DL (8.3-10.6); CARBON DIOXIDE LEVEL 31 MMOL/L (20-31); CHLORIDE LEVEL 103 MMOL/L (98-107); CHOLESTEROL LEVEL 114 MG/DL (<200); CHOLESTEROL RISK RATIO 2.41 (<5); CREATININE FOR GFR 1.29 MG/DL (0.70-1.30); GLOMERULAR FILTRATION RATE > 60.0 (>42); GLUCOSE, FASTING 156 MG/DL (74-106); HDL CHOLESTEROL 47.3 MG/DL (>40); LDL CHOLESTEROL 49.9 MG/DL (<100); MAGNESIUM LEVEL 1.7 MG/DL (1.8-2.4); NON-HDL-C 66.7 MG/DL; POTASSIUM SERUM 5.3 MMOL/L (3.5-5.1); SODIUM LEVEL 140 MMOL/L (136-145); TOTAL PROTEIN 7.1 G/DL (5.7-8.2); TRIGLYCERIDES LEVEL 84 MG/DL (<150)
== END ==
LOC: M WUC 09:56
PROVIDERS: ATTEND Family Medicine
DX: E11.9 Type 2 diabetes mellitus without complications (principal); E78.2 Mixed hyperlipidemia; E83.42 Hypomagnesemia

== ENCOUNTER → 2024-01-13 | Outpatient (REF) | payer MEDICARE ==
[2024-01-13 11:55] LABS: CALCIUM LEVEL 10.2 MG/DL (8.3-10.6); CREATININE FOR GFR 1.46 MG/DL (0.70-1.30); GLOMERULAR FILTRATION RATE 50.8 (>42); POTASSIUM SERUM 5.1 MMOL/L (3.5-5.1)
== END ==
LOC: M SFHCLERA 08:29
PROVIDERS: ATTEND Family Medicine
DX: E87.5 Hyperkalemia (principal)

== ENCOUNTER → 2024-02-04 | Outpatient (REF) | payer MEDICARE | LOC: M LABWUC 12:34 | PROVIDERS: ATTEND Physician Assistant | DX: R97.20 Elevated prostate specific antigen [PSA] (principal) ==

== ENCOUNTER → 2024-04-08 | Outpatient (CLI) | payer MEDICARE ==
[2024-04-08 18:26] LABS: BASO % 0.4 % (0.0-1.0); EOS # 0.1 10^3/uL (0.0-0.5); EOS % 1.6 % (0.0-3.0); HEMOGLOBIN 13.4 g/dl (13.5-17.5); LYMPH # 1.2 10^3/uL (1.5-5.0); LYMPH % 15.8 % (24.0-44.0); MEAN CORPUSCULAR HEMOGLOBIN 27.4 pg (27.0-33.0); MEAN CORPUSCULAR HGB CONC 31.9 g/dl (32.0-36.5); MEAN CORPUSCULAR VOLUME 85.9 fl (80.0-96.0); MONO % 13.6 % (2.0-8.0); NEUTROPHILS % 68.5 % (36.0-66.0); PLATELET COUNT, AUTOMATED 205 10^3/uL (150-450); RED BLOOD COUNT 4.89 10^6/uL (4.30-6.10); WHITE BLOOD COUNT 7.4 10^3/uL (4.0-10.0)
[2024-04-08 19:11] LABS: ALBUMIN 4.2 G/DL (3.2-5.2); BILIRUBIN,TOTAL 0.5 MG/DL (0.3-1.2); CALCIUM LEVEL 10.1 MG/DL (8.3-10.6); CREATININE FOR GFR 1.43 MG/DL (0.70-1.30); MAGNESIUM LEVEL 1.4 MG/DL (1.8-2.4); POTASSIUM SERUM 5.1 MMOL/L (3.5-5.1); TOTAL PROTEIN 7.7 G/DL (5.7-8.2)
== END ==
LOC: M WUC 14:48
PROVIDERS: ATTEND Family Medicine
DX: E11.9 Type 2 diabetes mellitus without complications (principal); E83.42 Hypomagnesemia; D50.9 Iron deficiency anemia, unspecified

== ENCOUNTER → 2024-06-03 | Outpatient (CLI) | payer MEDICARE ==
[2024-06-03 12:32] LABS: BASO % 0.4 % (0.0-1.0); EOS # 0.2 10^3/uL (0.0-0.5); EOS % 3.3 % (0.0-3.0); HEMATOCRIT 46.2 % (42.0-52.0); HEMOGLOBIN 14.6 g/dl (13.5-17.5); LYMPH # 1.5 10^3/uL (1.5-5.0); LYMPH % 20.2 % (24.0-44.0); MEAN CORPUSCULAR HEMOGLOBIN 28.6 pg (27.0-33.0); MEAN CORPUSCULAR HGB CONC 31.6 g/dl (32.0-36.5); MEAN CORPUSCULAR VOLUME 90.4 fl (80.0-96.0); MONO # 1.1 10^3/uL (0.0-0.8); MONO % 15.3 % (2.0-8.0); NEUTROPHILS # 4.5 10^3/uL (1.5-8.5); NEUTROPHILS % 60.5 % (36.0-66.0); PLATELET COUNT, AUTOMATED 204 10^3/uL (150-450); RED BLOOD COUNT 5.11 10^6/uL (4.30-6.10); WHITE BLOOD COUNT 7.4 10^3/uL (4.0-10.0)
[2024-06-03 12:34] LABS: ALBUMIN 3.8 G/DL (3.2-5.2); BILIRUBIN,TOTAL 0.5 MG/DL (0.3-1.2); CREATININE FOR GFR 1.32 MG/DL (0.70-1.30); GLOMERULAR FILTRATION RATE 57.1 (>42); MAGNESIUM LEVEL 1.7 MG/DL (1.8-2.4); TOTAL PROTEIN 7.6 G/DL (5.7-8.2)
[2024-06-03 12:35] LABS: PERCENT SATURATION 11.6 % (19.7-50.0); THYROID STIMULATING HORMONE 2.628 uIU/ML (0.55-4.78)
[2024-06-03 13:09] LABS: HEMOGLOBIN A1c 6.8 % (4.0-6.0)
== END ==
LOC: M WUC 09:36
PROVIDERS: ATTEND Family Medicine
DX: E11.319 Type 2 diabetes mellitus with unspecified diabetic retinopathy without macular edema (principal); E83.42 Hypomagnesemia; D50.9 Iron deficiency anemia, unspecified; E03.9 Hypothyroidism, unspecified

== ENCOUNTER → 2024-07-26 | Outpatient (CLI) | payer MEDICARE ==
[2024-07-29 13:42] LABS: PSA FREE 0.7 ng/mL; PSA TOTAL 2.3 ng/mL (< OR = 4.0)
== END ==
LOC: M WUC 10:47
PROVIDERS: ATTEND Physician Assistant
DX: R97.20 Elevated prostate specific antigen [PSA] (principal)

== ENCOUNTER → 2024-08-01 | Outpatient (REF) | payer MEDICARE | LOC: M SFHCLERA 10:27 | PROVIDERS: ATTEND Family Medicine | DX: R79.0 Abnormal level of blood mineral (principal) ==

== ENCOUNTER → 2025-01-31 | Outpatient (CLI) | payer MEDICARE ==
[~2025-01-31] MED LIST changes: -FLOM0.4C39 PO; -PRAV40TA2 PO; +PRAV40TA85 PO; +TAMS-18 PO
== END ==
LOC: M RAD 09:21
PROVIDERS: ATTEND Physician Assistant Medical
DX: K76.0 Fatty (change of) liver, not elsewhere classified (principal); N28.1 Cyst of kidney, acquired; Z90.49 Acquired absence of other specified parts of digestive tract

== ENCOUNTER → 2025-03-31 | Outpatient (CLI) | payer MEDICARE ==
[2025-03-31 12:47] LABS: BASO # 0.0 10^3/uL (0.0-0.2); BASO % 0.5 % (0.0-1.0); EOS # 0.2 10^3/uL (0.0-0.5); EOS % 2.8 % (0.0-3.0); LYMPH # 1.6 10^3/uL (1.5-5.0); LYMPH % 20.2 % (24.0-44.0); MONO # 1.0 10^3/uL (0.0-0.8); MONO % 13.0 % (2.0-8.0); NEUTROPHILS # 4.9 10^3/uL (1.5-8.5); NEUTROPHILS % 63.1 % (36.0-66.0); PLATELET COUNT, AUTOMATED 200 10^3/uL (150-450)
[2025-03-31 13:20] LABS: ALT/SGPT 41.0 U/L (7.0-40); AST/SGOT 37.0 U/L (<34); CALCIUM LEVEL 10.0 MG/DL (8.3-10.6); CARBON DIOXIDE LEVEL 28.0 MMOL/L (20-31); CHLORIDE LEVEL 102.0 MMOL/L (98-107); CHOLESTEROL LEVEL 123.0 MG/DL (<200); CHOLESTEROL RISK RATIO 2.95 (<5); CREATININE FOR GFR 1.39 MG/DL (0.70-1.30); CREATININE, URINE 182.7 MG/DL; GLOMERULAR FILTRATION RATE 54.2 (>42); IRON (FE) 97.0 UG/DL (65-175); LDL CHOLESTEROL 60.2 MG/DL (<100); MAGNESIUM LEVEL 1.3 MG/DL (1.8-2.4); NON-HDL-C 81.4 MG/DL; PERCENT SATURATION 27.6 % (19.7-50.0); POTASSIUM SERUM 5.0 MMOL/L (3.5-5.1); SODIUM LEVEL 142.0 MMOL/L (136-145); TRIGLYCERIDES LEVEL 106.0 MG/DL (<150)
[2025-03-31 13:21] LABS: MALB URINE SIEMENS < 3.0 MG/L
[2025-03-31 13:27] LABS: ESTIMATED AVERAGE GLUCOSE 154.0 MG/DL (60-110)
== END ==
LOC: M WUC 09:39
PROVIDERS: ATTEND Family Medicine
DX: Z00.00 Encounter for general adult medical examination without abnormal findings (principal); D50.9 Iron deficiency anemia, unspecified; E03.9 Hypothyroidism, unspecified; E11.22 Type 2 diabetes mellitus with diabetic chronic kidney disease; N18.30 Chronic kidney disease, stage 3 unspecified; E83.42 Hypomagnesemia

== ENCOUNTER → 2025-04-28 | Outpatient (CLI) | payer MEDICARE ==
[2025-04-28 14:34] LABS: CREATININE FOR GFR 1.2 MG/DL (0.70-1.30); GLOMERULAR FILTRATION RATE 64.7 (>42)
== END ==
LOC: M WUC 09:46
PROVIDERS: ATTEND Internal Medicine Gastroenterology
DX: R93.3 Abnormal findings on diagnostic imaging of other parts of digestive tract (principal)

== ENCOUNTER → 2025-05-04 | Outpatient (CLI) | payer MEDICARE ==
[~2025-05-04] MED LIST changes: +ISOVUE-370 76% 100 ML VIAL As Ordered ONE
== END ==
LOC: M RAD 09:08
PROVIDERS: ATTEND Physician Assistant Medical
DX: R83 Abnormal findings in cerebrospinal fluid (principal); K76.0 Fatty (change of) liver, not elsewhere classified; R74.01 Elevation of levels of liver transaminase levels; J98.11 Atelectasis; I25.10 Atherosclerotic heart disease of native coronary artery without angina pectoris; R93.2 Abnormal findings on diagnostic imaging of liver and biliary tract; N28.1 Cyst of kidney, acquired; K57.30 Diverticulosis of large intestine without perforation or abscess without bleeding
CPT/HCPCS: 74178; Q9967

== ENCOUNTER → 2025-06-28 | Outpatient (REF) | payer MEDICARE ==
[~2025-06-28] MED LIST changes: -ISOVUE-370 76% 100 ML VIAL As Ordered ONE
[2025-06-28 18:50] LABS: ALT/SGPT 34.0 U/L (7.0-40); AST/SGOT 34.0 U/L (<34)
== END ==
LOC: M LAB REF 18:05
PROVIDERS: ATTEND Internal Medicine Gastroenterology
DX: K76.0 Fatty (change of) liver, not elsewhere classified (principal)